=== PATIENT | female | born 2000 | race Caucasian/White ===

== ENCOUNTER 2021-04-14 08:46 | Emergency (ER) | payer OTHER ==
[2021-04-14 09:40] LABS: HEMOGLOBIN 11.4 gm/dl (12.3-15.3); RED BLOOD COUNT 4.7 M/UL (4.00-5.10); WHITE BLOOD COUNT 5.9 K/UL (4.5-11.0)
[2021-04-14 10:01] LABS: BUN/CREATININE RATIO 21 (0-10)
[2021-04-14] MEDS ORDERED: PHENERGAN 12.12.5 M1 PO (13:24)
== END 2021-04-14 14:11 | disposition home or self-care (01) ==
LOC: ER1 08:46
PROVIDERS: Physician Assistant
DX: R10.9 Unspecified abdominal pain (principal); R11.2 Nausea with vomiting, unspecified; R19.7 Diarrhea, unspecified; R00.0 Tachycardia, unspecified; Z20.822 Contact with and (suspected) exposure to COVID-19
CPT/HCPCS: 80053; 81001; 83605; 83690; 84439; 84443; 84703; 85025; 96374; 99284; J2405; Q9967; U0002

== ENCOUNTER 2021-04-21 11:56 | Emergency (ER) | payer OTHER ==
[~2021-04-21 11:56] MED LIST: PHENERGAN 12.12.5 M1 PO
[2021-04-21 12:58] LABS: HEMOGLOBIN 11.6 gm/dl (12.3-15.3); RED BLOOD COUNT 4.74 M/UL (4.00-5.10); WHITE BLOOD COUNT 7.9 K/UL (4.5-11.0)
[2021-04-21 13:38] LABS: BUN/CREATININE RATIO 23 (0-10)
== END 2021-04-22 04:21 | disposition short-term general hospital (02) ==
LOC: ER1 11:56
PROVIDERS: Emergency Medicine; Physician Assistant Medical
DX: R07.89 Other chest pain (principal); R45.851 Suicidal ideations; F41.9 Anxiety disorder, unspecified; F32.9 Major depressive disorder, single episode, unspecified; Z20.822 Contact with and (suspected) exposure to COVID-19
CPT/HCPCS: 80053; 80307; 81001; 82550; 82553; 83735; 83874; 84484; 84703; 85025; 85379; 93005; 99285; U0002